=== PATIENT | female | born 1965 | race African-American/Black ===

== ENCOUNTER 2021-10-14 23:49 | Emergency (ER) | payer OTHER ==
[2021-10-15] MEDS ORDERED: Ketorolac Tromethamine 30 MG/ML VIAL ONE (00:18)
== END 2021-10-15 01:23 | disposition home or self-care (01) ==
LOC: ERS 23:49
DX: S16.1XXA Strain of muscle, fascia and tendon at neck level, initial encounter (principal); I10 Essential (primary) hypertension; V69.9XXA Occupant (driver) (passenger) of heavy transport vehicle injured in unspecified traffic accident, initial encounter
CPT/HCPCS: 72125; 96372; J1885